=== PATIENT | female | born 1950 ===

== ENCOUNTER 2017-05-21 06:10 | Day surgery (SDC) | payer OTHER ==
[2017-05-21] MEDS ORDERED: COLACE100 MG PO (12:59)
[2017-05-21] MEDS ORDERED: PERCOCET 5-3251 EACH PO (12:59)
== END 2017-05-21 15:50 | disposition home or self-care (01) ==
LOC: CIR.AMB 06:10
DX: K64.8 Other hemorrhoids (principal); K62.89 Other specified diseases of anus and rectum

== ENCOUNTER 2018-08-12 07:42 | Day surgery (SDC) | payer OTHER ==
[~2018-08-12 07:42] MED LIST: ATENOLOL50 MG PO; BONIVA150 MG; COLACE100 MG PO; FOLGARD TABLET1 EACH PO; PERCOCET 5-3251 EACH PO; SYNTHROID75 MCG PO; [UNRECOGNIZED DRUG - OTHER] PO
[2018-08-12] MEDS ORDERED: COLACE100 MG PO (12:38)
[2018-08-12] MEDS ORDERED: PERCOCET 5-3251 EACH PO (12:38)
[2018-08-12] MEDS ORDERED: NEURONTIN300 MG PO (13:36)
== END 2018-08-12 18:20 | disposition home or self-care (01) ==
LOC: CIR.AMB 07:42
DX: K64.8 Other hemorrhoids (principal); K64.4 Residual hemorrhoidal skin tags